=== PATIENT | male | born 1990 | race Caucasian/White ===

== ENCOUNTER 2020-07-09 16:07 | Outpatient (REF) | payer MEDICARE, MEDICAID, SELFPAY | END 2020-07-09 16:08 | disposition home or self-care (01) | LOC: HO.LAB 16:07 | PROVIDERS: Visit Provider Internal Medicine | DX: Z20.822 Contact with and (suspected) exposure to COVID-19 (principal) | CPT/HCPCS: 36415; C9803; U0003 ==

== ENCOUNTER 2025-03-28 19:59 | Emergency (ER) | payer OTHER, SELFPAY ==
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
[2025-03-28 20:08] VITALS: BP 122/68; PULSE 71; RESP 16; TEMP 36.1; O2SAT 100; BMI 28.4
[2025-03-28 20:29] VITALS: BP 120/69; PULSE 75; RESP 16; TEMP 36.4; O2SAT 100
--- OUTSIDE RECORDS SUMMARY | 2025-03-28 20:43 | XMS_ITS | Encounter Summary ---
Author Organization [facility] Address [address] [place] [address] Phone Care Team Providers Care Washing Machine Operator Name Role Phone Héctor Chandler MD Primary Care Provider [phone] Héctor Chandler MD Unavailable [phone] Héctor Chandler MD Unavailable [phone] Héctor Chandler MD Primary Care Provider [phone] Reason for Referral * MRI/CAT Scan - Closed Specialty Diagnoses / Procedures Referred By Contac t Referred To Contact Radiology Diagnoses Right shoulder pain, unspecified chronicity Procedures MRI Shoulder Arthrogram (Right) Allan Marcelo MD Phone: tel: fax: [email or web address] Referral ID Status Reason Start Date Expiration Date Visits Re quested Visits Authorized [id number] Closed 08/12/2018 08/12/2019 1 1 * - Closed Specialty Diagnoses / Procedures Referred By Contac t Referred To Contact Radiology Diagnoses Right shoulder pain, unspecified chronicity Procedures FL Shoulder Arthrogram (Right) Allan Marcelo MD Phone: tel: fax: mailto:[email or web address] Referral ID Status Reason Start Date Expiration Date Visits Re quested Visits Authorized [id number] Closed 08/14/2018 08/14/2019 1 1 Encounter Details Date Type Department Care Team (Latest Contact Info) Description 08/14/2018 Transcribe Orders Virtual Department [address] [place] [address] Allan Marcelo MD [address] [place] [address] [email or web address] Right shoulder pain, unspecified chronicity (Primary Dx) Social History Tobacco Use Types Packs/Day Years Used Date Smoking Tobacco: Never Smokeless Tobacco: Never Alcohol Use Standard Drinks/Week Comments No 0 (1 standard drink = 0.6 oz pur e alcohol) Sex and Gender Information Value Date Recorded Sex Assigned at Male 07/31/2018 7:42 AM EST Legal Sex Male 9:06 PM EDT Gender Identity Male 07/31/2018 7:42 AM EST Sexual Orientation Straight 07/31/2018 7: 42 AM EST documented as of this encounter Plan of Treatment Not on file documented as of this encounter Results * MRI Shoulder Arthrogram (Right) (09/12/2018 1:19 PM EDT) Anatomical Region Laterality Modality Shoulder Right Magnetic Resonan ce 09/12/2018 1:22 PM EDT Impressions 09/12/2018 1:27 PM EDT No discrete labral or rotator cuff tear demonstrated. POS [id number] Narrative 09/12/2018 1:27 PM EDT TECHNIQUE: Exam performed on a 1.5 Christy high-field MRI scanner. Dilute gadolinium solution was injected before the MRI - please see separate report. Axial T1, T1 with fat suppression and proton density with fat suppression, oblique coronal T1 with fat suppression and T2 with fat suppression, oblique sagittal T1 with fat suppression and proton density with fat suppression sequences were obtained. FINDINGS: Comparison is made with the prior MR of 02/18/2014. Focal supraspinatous tendinosis suggested previously is not duplicated currently. No discrete rotator cuff tear is demonstrated. No discrete labral tear apparent. Biceps tendon is unremarkable in appearance. Mid glenohumeral ligament appears to be intact. No significant abnormality of skeletal marrow signal is present. No soft tissue mass or axillary lymphadenopathy are demonstrated. Procedure Note Héctor Pelayo MD - 09/12/2018 TECHNIQUE: Exam performed on a 1.5 Christy high-field MRI scanner. Dilutegadolinium solution was injected before the MRI - please see separatereport. Axial T1, T1 with fat suppression and proton density with fatsuppression, oblique coronal T1 with fat suppression and T2 with fatsuppression, oblique sagittal T1 with fat suppression and proton densitywith fat suppression sequences were obtained. FINDINGS: Comparison is made with the prior MR of 02/18/2014. Focal supraspinatous tendinosis suggested previously is not duplicatedcurrently. No discrete rotator cuff tear is demonstrated. No discretelabral tear apparent. Biceps tendon is unremarkable in appearance. Midglenohumeral ligament appears to be intact. No significant abnormality ofskeletal marrow signal is present. No soft tissue mass or axillarylymphadenopathy are demonstrated. IMPRESSION: No discrete labral or rotator cuff tear demonstrated. POS [id number] us Allan Marcelo MD IMG MR EXTREMITY Final Resul t * FL Shoulder Arthrogram (Right) (09/12/2018 12:01 PM EDT) Anatomical Region Laterality Modality Shoulder Right Radiographic Chelsea ging 09/12/2018 12:1 5 PM EDT Impressions 09/12/2018 12:16 PM EDT Apparently successful intra-articular administration of contrast. MR arthrography is pending, to be reported separately. FLUOROSCOPY TIME: min. 47 sec; 1 IMAGES/FRAMES POS - [id number] Narrative 09/12/2018 12:16 PM EDT COMPARISON: None FINDINGS: A preliminary anterior view reveals no acute bony abnormality. Once informed consent was obtained and the appropriate side of intervention confirmed by the patient and radiologist the overlying skin and subcutaneous tissues were infiltrated with a lidocaine solution. Utilizing sterile technique a spinal needle was then percutaneously inserted via an anterior approach and once an intra-articular location of the needle tip was confirmed via injection of small amount of radiographic contrast, approximately 10 cc of a dilute gadolinium mixture was instilled. Following removal of the needle the patient was sent to the MR suite for further imaging. He tolerated the procedure well, without immediate complications encountered. Procedure Note Héctor Pelayo MD - 09/12/2018 COMPARISON: None FINDINGS: A preliminary anterior view reveals no acute bony abnormality. Onceinformed consent was obtained and the appropriate side of interventionconfirmed by the patient and radiologist the overlying skin andsubcutaneous tissues were infiltrated with a lidocaine solution.Utilizing sterile technique a spinal needle was then percutaneouslyinserted via an anterior approach and once an intra-articular location ofthe needle tip was confirmed via injection of small amount of radiographiccontrast, approximately 10 cc of a dilute gadolinium mixture wasinstilled. Following removal of the needle the patient was sent to the [facility] for further imaging. He tolerated the procedure well, withoutimmediate complications encountered. IMPRESSION: Apparently successful intra-articular administration of contrast. MRarthrography is pending, to be reported separately. FLUOROSCOPY TIME: min. 47 sec; 1 IMAGES/FRAMES POS - [id number] us Allan Marcelo MD [facility] Final Result documented in this encounter Visit Diagnoses Diagnosis Right shoulder pain, unspecified chronicity- Primary Right shoulder pain, unspecified chronicity Right shoulder pain, unspecified chronicity documented in this encounter Additional Health Concerns Infection Onset Date Last Indicated Resolved Time CoV-Risk 01/25/2021 01/25/2021 02/04/2021 1:26 AM EDT documented as of this encounter Care Teams Washing Machine Operator Relationship Specialty Start Date End Date Héctor Chandler MD [email or web address] PCP - General 04/12/17 07/08/24 Héctor Chandler MD [address] [place] [address] [email or web address] PCP - General Internal Medicine 07/09/24 Héctor Chandler MD [address] [place] [address] [email or web address] Insurance Assigned Provider 08/26/18 03/03/19 Héctor Chandler MD [address] [place] [address] [email or web address] Insurance Assigned Provider 07/05/20 08/02/20 documented as of this encounter Additional Source Comments The information contained in this document represents components of the legal health record. It is not the complete legal health record.[facility]
--- OUTSIDE RECORDS SUMMARY | 2025-03-28 20:43 | XMS_ITS | Encounter Summary ---
Author Organization [facility] Address [address] [place] [address] Phone Care Team Providers Care Power Transmission Engineer Name Role Phone Rj Chandler MD Primary Care Provider [phone] Rj Chandler MD Unavailable [phone] Rj Chandler MD Unavailable [phone] Rj Chandler MD Primary Care Provider [phone] Encounter Details Date Type Department Care Team (Late st Contact Info) Description 04/22/2017 Ancillary Orders Virtual Department [address] [place] [address] Rj Chandler MD [address] [place] [address] [email or web address] Right shoulder pain, unspecified chronicity Social History Tobacco Use Types Packs/Day Years Used Date Smoking Tobacco: Never Assessed Sex and Gender Information Value Date Recorded Sex Assigned at Male 07/31/2018 7:42 AM EST Legal Sex Male 9:06 PM EDT Gender Identity Male 07/31/2018 7:42 AM EST Sexual Orientation Straight 07/31/2018 7: 42 AM EST documented as of this encounter Plan of Treatment Not on file documented as of this encounter Visit Diagnoses Diagnosis Right shoulder pain, unspecified chronicity documented in this encounter Additional Health Concerns Infection Onset Date Last Indicated Resolved Time CoV-Risk 01/25/2021 01/25/2021 02/04/2021 1:26 AM EDT documented as of this encounter Care Teams Power Transmission Engineer Relationship Specialty Start Date End Date Rj Chandler MD [email or web address] PCP - General 04/12/17 07/08/24 Rj Chandler MD [address] [place] [address] [email or web address] PCP - General Internal Medicine 07/09/24 Rj Chandler MD [address] [place] [address] [email or web address] Insurance Assigned Provider 08/26/18 03/03/19 Rj Chandler MD [address] [place] [address] [email or web address] Insurance Assigned Provider 07/05/20 08/02/20 documented as of this encounter Additional Source Comments The information contained in this document represents components of the legal health record. It is not the complete legal health record.[facility]
--- OUTSIDE RECORDS SUMMARY | 2025-03-28 20:43 | XMS_ITS | Encounter Summary ---
Author Organization [facility] Address [address] [place] [address] Phone Care Team Providers Care Manager School Name Role Phone Rj Chandler MD Primary Care Provider [phone] Rj Chandler MD Unavailable [phone] Rj Chandler MD Unavailable [phone] Rj Chandler MD Primary Care Provider [phone] Encounter Details Date Type Department Care Team (Late st Contact Info) Description 08/14/2018 Procedure Pass [facility], [address] [address] Social History Tobacco Use Types Packs/Day Years [...] documented as of this encounter Visit Diagnoses Not on filedocumented in this encounter Additional Health Concerns Infection Onset Date Last Indicated Resolved Time CoV-Risk 01/25/2021 01/25/2021 02/04/2021 1:26 AM EDT documented as of this encounter Care Teams Manager School Relationship Specialty Start Date End Date Rj Chandler MD [email or web address] PCP - General 04/12/17 07/08/24 Rj Chandler MD [address] [place] [address] [email or web address] PCP - General Internal Medicine 07/09/24 Rj Chandler MD [address] [place] [address] [email or web address] Insurance Assigned Provider 08/26/18 03/03/19 Rj Chandler MD [address] [place] [address] [email or web address] Insurance Assigned Provider 07/05/20 08/02/20 documented as of this encounter Additional Source Comments The information contained in this document represents components of the legal health record. It is not the complete legal health record.[facility]
--- OUTSIDE RECORDS SUMMARY | 2025-03-28 20:43 | XMS_ITS | Clinical Summary ---
Author Organization [facility] Address [address] [place] [address] Care Team Providers Care Tool Rental Technician Name Role Phone Nadeem Becerra Primary Care Provider Allergies No known active allergies Medications Amphetamine-Dext roamphetamine (ADDERALL, 10MG,) 10 MG Tab 1 TABLET DAILY Active Fluoxetine HCl 20 MG Cap 1 CAPSULE EVERY MORNING Active TraZODone HCl 50 MG Tab 1 TABLET DAILY Active Amoxicillin-Pot Clavulanate (AUGMENTIN) 875-125 MG Tab 1 by mouth twice daily for 7 days 14 Tab 10/04/2017 Active Active Problems No known active problems Immunizations Immunization Administration Dates Next Due Tdap 10/04/2017 Social History Tobacco Use Types Packs/Day Years Used Date Smoking Tobacco: Never Smokeless Tobacco: Never Sex and Gender Information Value Date Recorded Sex Assigned at Not on file Legal Sex Male 3:04 PM EDT Gender Identity Not on file Sexual Orientation Not on file Last Filed Vital Signs Vital Sign Reading Time Taken Comments Blood Pressure 107/74 10/04/2017 3:24 PM EDT Pulse 66 10/04/2017 3:24 PM EDT Temperature 36.8 C (98.3 F) 10/04/2017 3:24 PM EDT Respiratory Rate 16 10/04/2017 3:24 PM EDT Oxygen Saturation - - Inhaled Oxygen Concentration - - Weight - - Height - - Body Mass Index - - Plan of Treatment Health Maintenance Due Date Last Done Comments Hepatitis C Screening 1989 Hep B (1 of 3 - 19+ 3-dose series) 02/15/2008 COVID-19 Vaccine ( - 2023-2 5 season) 2025 Influenza (#1) 2025 DTaP/Tdap/Td (2 - Td or Tdap) 10/05/2027 10/04/2017 Zoster (Shingrix) (1 of 2) 2039 HPV Vaccine (No Doses Required) Completed Hep A Aged Out No longer eligi ble based on patient's age to complete this topic Hib Aged Out No longer eligi ble based on patient's age to complete this topic Meningococcal ACWY Aged Out No longer eligible based on patient's age to complete this topic Pneumococcal Aged Out No longer eligi ble based on patient's age to complete this topic Insurance * Guarantor: [employer] Account Type Relation to Patient Date of Phone Billing Address Personal/Family [address] [place] [address] MEDICAID Care Teams Tool Rental Technician Relationship Specialty Start Date End Date Nadeem Becerra [address] [address] PCP - General Family Medicine 10/04/17
--- OUTSIDE RECORDS SUMMARY | 2025-03-28 20:43 | XMS_ITS | Encounter Summary ---
Author Organization [facility] Address [address] [place] [address] Phone Care Team Providers Care Grease Refining Supervisor Name Role Phone Rj Chandler MD Primary Care Provider [phone] Rj Chandler MD Unavailable [phone] Rj Chandler MD Unavailable [phone] Rj Chandler MD Primary Care Provider [phone] Encounter Details Date Type Department Care Team (Late st Contact Info) Description 04/21/2017 Transcribe Orders Virtual Department [address] [place] [address] Rj Chandler MD [address] [place] [address] [phone] [email or web address] Right shoulder pain, unspecified chronicity (Primary Dx) [...] Diagnosis Right shoulder pain, unspecified chronicity- Primary documented in this encounter Additional Health Concerns Infection Onset Date Last Indicated Resolved Time CoV-Risk 01/25/2021 01/25/2021 02/04/2021 1:26 AM EDT documented as of this encounter Care Teams Grease Refining Supervisor Relationship Specialty Start Date End Date Rj Chandler MD [email or web address] PCP - General 04/12/17 07/08/24 Rj Chandler MD [address] [place] [address] [email or web address] PCP - General Internal Medicine 07/09/24 Rj Chandler MD [address] [place] [address] [email or web address] Insurance Assigned Provider 08/26/18 03/03/19 Rj Chandler MD [address] [place] [address] [email or web address] Insurance Assigned Provider 07/05/20 08/02/20 documented as of this encounter Additional Source Comments The information contained in this document represents components of the legal health record. It is not the complete legal health record.[facility]
--- OUTSIDE RECORDS SUMMARY | 2025-03-28 20:43 | XMS_ITS | Encounter Summary ---
Author Organization [facility] Address [address] [place] [address] Phone Care Team Providers Care Data Entry Email Processor Name Role Phone Rj Chandler MD Primary Care Provider [phone] Rj Chandler MD Primary Care Provider [phone] Reason for Referral * MRI/CAT Scan - Closed Specialty Diagnoses / Procedures Referred By Contac t Referred To Contact Radiology Diagnoses Radiculopathy, cervical region Procedures MRI Cervical Spine CHG MRI, CERV SPINE Steven Moy MD Phone: tel: fax: mailto:[email or web address] Referral ID Status Reason Start Date Expiration Date Visits Re quested Visits Authorized [id number] Closed 04/09/2022 07/11/2022 1 1 Encounter Details Date Type Department Care Team (Latest Contact Info) Description 04/26/2022 Transcribe Orders Virtual Department [address] [place] [address] Steven Moy MD [address] [place] [address] [email or web address] Radiculopathy, cervical region (Primary Dx) Social History Tobacco Use Types [...] as of this encounter Plan of Treatment Scheduled Orders Name Type Priority Associated Diagnoses Orde r Schedule MRI Cervical Spine Imaging Routine Radiculopathy, cervical region Expected: 04/26/2022, Expires: 04/26/2023 documented as of this encounter Visit Diagnoses Diagnosis Radiculopathy, cervical region- Primary Brachial neuritis or radiculitis nos documented in this encounter Care Teams Data Entry Email Processor Relationship Specialty Start Date End Date Rj Chandler MD [email or web address] PCP - General 04/12/17 07/08/24 Rj Chandler MD [address] [place] [phone] [email or web address] PCP - General Internal Medicine 07/09/24 documented as of this encounter Additional Source Comments The information contained in this document represents components of the legal health record. It is not the complete legal health record.[facility]
--- OUTSIDE RECORDS SUMMARY | 2025-03-28 20:43 | XMS_ITS | Encounter Summary ---
Author Organization [facility] Address [address] [place] [address] Phone Care Team Providers Care Boring Machine Operator Vertical Name Role Phone Rj Chandler MD Primary Care Provider [phone] Rj Chandler MD Unavailable [phone] Rj Chandler MD Unavailable [phone] Rj Chandler MD Primary Care Provider [phone] Encounter Details Date Type Department Care Team (Late st Contact Info) Description 04/21/2017 Ancillary Orders Virtual Department [address] [place] [address] Rj Chandler MD [address] [place] [address] [email or web address] Social History Tobacco Use Types Packs/Day Years [...] documented as of this encounter Care Teams Boring Machine Operator Vertical Relationship Specialty Start Date End Date Rj Chandler MD [email or web address] PCP - General 04/12/17 07/08/24 Rj Chandler MD [address] [place] [phone] [email or web address] PCP - General Internal Medicine 07/09/24 Rj Chandler MD [address] [place] [address] [email or web address] Insurance Assigned Provider 08/26/18 03/03/19 Rj Chandler MD [address] [place] [address] [email or web address] Insurance Assigned Provider 07/05/20 08/02/20 documented as of this encounter Additional Source Comments The information contained in this document represents components of the legal health record. It is not the complete legal health record.[facility]
--- OUTSIDE RECORDS SUMMARY | 2025-03-28 20:43 | XMS_ITS | Encounter Summary ---
Author Organization [facility] Address [address] [place] [id number] Phone Care Team Providers Care Tugboat Captain Name Role Phone Rj Chandler MD Primary Care Provider [phone] Rj Chandler MD Unavailable [phone] Rj Chandler MD Unavailable [phone] Rj Chandler MD Primary Care Provider [phone] Encounter Details Date Type Department Care Team (Late st Contact Info) Description 04/22/2017 Ancillary Orders Virtual Department [address] [place] [id number] Rj Chandler MD [address] [place] [phone] [email or web address] Social History Tobacco Use Types Packs/Day Years [...] documented as of this encounter Care Teams Tugboat Captain Relationship Specialty Start Date End Date Rj Chandler MD [email or web address] PCP - General 04/12/17 07/08/24 Rj Chandler MD [address] [place] [phone] [email or web address] PCP - General Internal Medicine 07/09/24 Rj Chandler MD [address] [place] [phone] [email or web address] Insurance Assigned Provider 08/26/18 03/03/19 Rj Chandler MD [address] [place] [phone] [email or web address] Insurance Assigned Provider 07/05/20 08/02/20 documented as of this encounter Additional Source Comments The information contained in this document represents components of the legal health record. It is not the complete legal health record.[facility]
--- OUTSIDE RECORDS SUMMARY | 2025-03-28 20:43 | XMS_ITS | Clinical Summary ---
Author Organization [facility] Address [address] [place] [address] Phone Care Team Providers Care Hand Picker Name Role Phone Rj Chandler MD Primary Care Provider [phone] Allergies No known active allergies Medications clonazePAM (KLONOPIN) 1 MG tablet Take 1 mg by mouth 3 (three) times a day. 1 Active cetirizine (ZYRTEC) 10 MG tablet Take 10 mg by mouth daily. 1 Active dextroamphetami ne-amphetamine (ADDERALL) 20 mg Tab tablet every morning. 1 Active cyclobenzaprine (FLEXERIL) 10 MG tablet Take 1 tablet (10 mg total) by mouth 3 (three) times a day as needed (muscle). 15 tablet 1 Active Additional Information Patient not taking.Reported on 01/19/2025 nabumetone (RELAFEN) 500 MG tablet Take 1 tablet (500 mg total) by mouth 2 (two) times a day for 10 days. Take with food. 20 tablet 1 Active loratadine (CLARITIN) 10 mg tablet Take 1 tablet by mouth every morning. 3 Active oxyCODONE 5 MG immediate release tablet TAKE 1 TABLET BY MOUTH EVERY 6 HOURS NEEDED FOR 2 DAYS 3 Active oxyCODONE-aceta minophen (PERCOCET) 5-325 mg per tablet TAKE 1 TABLET BY MOUTH EVERY 6 HOURS NEEDED FOR 3 DAYS 3 Active Active Problems No known active problems Encounters Date Type Department Care Team Description 01/29/2025 1:50 PM EDT Office Visit [facility] [address] [place] [address] Lynn Davies, Nga Wolff, DEANGELO Sore throat (Primary Dx); Strep throat 01/19/2025 10:40 AM EDT Office Visit [facility] at [address] [place] [address] Lynn Davies, LUIS Strep throat (Primary Dx) from Last 3 Months Immunizations Immunization Administration Dates Next Due DTP 08/30/1990, 0,1989,1988 DTaP, unspecified formulation 03/02/1994 HPV,quadrivalent 12/01/2012 Hepatitis B, unspecified formulation 09/10/1999, 08/01/1996,07/04/1996 Hib, unspecified formulation 06/12/1990 Influenza Quadrivalent Prese rvative Free IM 07/05/2019 Influenza trivalent preserva tive free intradermal 05/05/2012 MMR 09/10/1999,06/12/1990 Polio - OPV 03/02/1994, 1,1989,1988,1989 Td (adult), not adsorbed 10/06/2017 Td, unspecified formulation 08/12/2000 Tdap 10/04/2017,12/01/2012 Varicella 06/27/1993 Social History Tobacco Use Types Packs/Day Years [...] Orientation Straight 07/31/2018 7: 42 AM EST Last Filed Vital Signs Vital Sign Reading Time Taken Comments Blood Pressure 110/72 01/29/2025 2:23 PM EDT Pulse 78 01/29/2025 2:23 PM EDT Temperature 36.7 C (98 F) 01/29/2025 2:23 PM EDT Respiratory Rate 16 01/29/2025 2:23 PM EDT Oxygen Saturation 98% 01/29/2025 2:23 PM EDT Inhaled Oxygen Concentration - - Weight 93.2 kg (205 lb 6.4 oz) 07/09/2024 9:55 A M EST Height 185.4 cm (6' 1 ) 07/09/2024 9:55 AM EST Body Mass Index 27.1 07/09/2024 9:55 AM EST Plan of Treatment Health Maintenance Due Date Last Done Comments LIPID PANEL 1989 DEPRESSION SCREENING 2001 HEPATITIS C SCREENING 2007 HIV ONE-TIME SCREENING (18-65 YEARS) 2007 INFLUENZA VACCINE (#1) 2025 07/05/2019, 2011 COVID-19 VACCINE ( season) 2025 02/06/2021 SCREENING FOR DIABETES 07/09/2027 07/09/2024 Adult Td,Tdap Booster 10/07/2027 10/06/2017 , 10/04/2017, 12/01/2012, Additional history exists HIB VACCINES Completed 06/12/1990 SMOKING STATUS SCREENING (Once After 26 Yrs) Completed 01/29/2025 HEPATITIS A VACCINES Aged Out No long er eligible based on patient's age to complete this topic MENINGOCOCCAL VACCINES (ACWY) Aged Out No longer eligible based on patient's age to complete this topic MENINGOCOCCAL VACCINES (B) Aged Out N o longer eligible based on patient's age to complete this topic PNEUMOCOCCAL VACCINES (0-49 years) Aged Out No longer eligible based on patient's age to complete this topic Medical Devices Not on file Procedures Procedure Name Priority Date/Time Associated Diagnosis Comments POCT RAPID STREP A Routine 01/29/2025 1: 52 PM EDT POCT RAPID STREP A Routine 01/19/2025 10 :45 AM EDT from Last 3 Months Results * (ABNORMAL) POCT Rapid Strep A (01/29/2025 1:52 PM EDT) Only the most recent of2 resultswithin the time period is included. [facility] Signature Strep A, PCR Detected(A ) Not Detected [facility] [place] 01/29/2025 1:52 PM EDT 01/29/2025 2:17 PM EDT Lynn Davies NP POINT OF CARE TEST ORDERAB LES Final Result [facility] [address] [id number], [facility] [phone] from Last 3 Months Insurance MEDICARE PART A & B [facility]LY [facility] CARE MEDICARE REPLACEMENT MEDICARE PART A & B [facility] CARE MEDICARE REPLACEMENT MEDICARE PART A & B MEDICARE PART A & B MEDICARE PART A & B ONE CARE MEDICARE REPLACEMENT [place] [id number] MEDICARE PART A & B MEDICARE PART A & B ONE CARE MEDICARE REPLACEMENT [place] [id number] MEDICARE PART A & B CARE MEDICARE REPLACEMENT MEDICARE PART A & B CARE MEDICARE REPLACEMENT [employer] MEDICARE PART A & B [employer] Care Teams Hand Picker Relationship Specialty Start Date End Date Rj Chandler MD [address] [place] [phone] [email or web address] PCP - General Internal Medicine 07/09/24 Additional Source Comments The information contained in this document represents components of the legal health record. It is not the complete legal health record.[facility]
--- OUTSIDE RECORDS SUMMARY | 2025-03-28 20:43 | XMS_ITS | Encounter Summary ---
Author Organization [facility] Address [address] [place] [phone] Phone Care Team Providers Care Child Care Leader Name Role Phone Rj Chandler MD Primary Care Provider [phone] Rj Chandler MD Primary Care Provider [phone] Encounter Details Date Type Department Care Team (Late st Contact Info) Description 11/11/2020 Procedure Pass [facility], Ct Scan - [address] [address] Social History Tobacco Use Types Packs/Day Years [...] Date of Assessment Author No Risk Indicated 11/11/2020 8:26 AM Eloina Yancey RN * [place] Suicide Severity Rating Scale (Screener/Recent Self-Report) Question Answer Date of Assessment Author 1. Wish to be (Past 1 Month) No 021 8:26 AM Eloina Yancey RN 2. Non-Specific Active Suici abril Thoughts (Past 1 Month) No 11/11/2020 8:26 AM Eloina Yancey RN 6. Suicidal Behavior (Lifetime) No 8:26 AM EDT Eloina Palomino RN documented as of this encounter Plan of Treatment Not on file documented as of this encounter Visit Diagnoses Not on filedocumented in this encounter Additional Health Concerns Infection Onset Date Last Indicated Resolved Time CoV-Risk 01/25/2021 01/25/2021 02/04/2021 1:26 AM EDT documented as of this encounter Care Teams Child Care Leader Relationship Specialty Start Date End Date Rj Chandler MD [email or web address] PCP - General 04/12/17 07/08/24 Rj Chandler MD [address] [place] [phone] [email or web address] PCP - General Internal Medicine 07/09/24 documented as of this encounter Additional Source Comments The information contained in this document represents components of the legal health record. It is not the complete legal health record.[facility]
--- OUTSIDE RECORDS SUMMARY | 2025-03-28 20:43 | XMS_ITS | Encounter Summary ---
Author Organization [facility] Address [address] [place] [address] Phone Care Team Providers Care Undercover Operator Name Role Phone Rj Chandler MD Primary Care Provider [phone] Rj Chandler MD Primary Care Provider [phone] Encounter Details Date Type Department Care Team (Late st Contact Info) Description 12/17/2021 Procedure Pass [facility], Ct Scan - [address] [address] Social History Tobacco Use Types Packs/Day Years [...] Date of Assessment Author No Risk Indicated 12/17/2021 6:14 PM EDT Tonia Garcias RN * [place] Suicide Severity Rating Scale (Screener/Recent Self-Report) Question Answer Date of Assessment Author 1. Wish to be (Past 1 Month) No 022 6:14 PM EDT Tonia Garcias RN 2. Non-Specific Active Suici abril Thoughts (Past 1 Month) No 12/17/2021 6:14 PM EDT Anastasia Garcias RN 6. Suicidal Behavior (Lifetime) No 2 6:14 PM EDT Tonia Garcias RN documented as of this encounter Plan of Treatment Not on file documented as of this encounter Visit Diagnoses Not on filedocumented in this encounter Care Teams Undercover Operator Relationship Specialty Start Date End Date Rj Chandler MD [email or web address] PCP - General 04/12/17 07/08/24 Rj Chandler MD [address] [place] [phone] [email or web address] PCP - General Internal Medicine 07/09/24 documented as of this encounter Additional Source Comments The information contained in this document represents components of the legal health record. It is not the complete legal health record.[facility]
[2025-03-28 20:53] LABS: Alanine Aminotransferase 16 U/L (0-40); Albumin Level 4.9 g/dL (3.5-5.0); Alkaline Phosphatase 69 U/L (39-117); Anion Gap 12 (12-20); Aspartate Amino Transferase 24 U/L (5-37); Blood Urea Nitrogen 11 mg/dL (9-16); Calcium 9.6 mg/dL (8.4-10.2); Carbon Dioxide 28 mmol/L (22-29); Chloride 106 mmol/L (96-108); Creatinine Clr Calc Pharmacy 169.7; Estimated Glomerular Filt Rate > 60; Potassium 4.2 mmol/L (3.3-5.1); Sodium 142 mmol/L (135-145); Total Protein 7.9 g/dL (6.5-8.0)
[2025-03-28 20:56] LABS: Hematocrit 42.0 % (42.0-52.0); Hemoglobin 14.6 g/dl (14.0-18.0); Imm Gran Abs Auto 0.04 X10*3/uL (0.00-0.03); Imm Gran Pct Auto 0.5 % (0.0-0.4); Lymphocytes Absolute Auto 0.5 X10*3/uL (1.2-4.9); MANUAL DIFF FLAG SCAN; Mean Corpuscular HGB Conc 34.8 g/dl (31.0-36.0); Mean Corpuscular Hemoglobin 29.8 pg (27.0-33.0); Mean Corpuscular Volume 85.7 fL (80.0-98.0); NRBC Abs Auto 0.000 X10*3/uL (0.0-0.012); NRBC Pct Auto 0.0 /100WBC (0.0-0.2); Platelet Count 263 X10*3/uL (160-400); Red Blood Count 4.90 X10*6/uL (4.60-5.80); SCAN SMEAR FLAG 1; White Blood Count 8.8 X10*3/uL (4.8-10.8)
[2025-03-28 21:16] LABS: COVID-19 Test Negative (Negative); IDNOW Serial# 6674DD1D
--- NOTE | 2025-03-28 22:20 | ED.HA ---
HPI - Headache General Chief Complaint: Headache Stated Complaint: migraine N+V Time Seen by Provider: 03/28/25 21:05 Source: patient Mode of arrival: ambulatory Limitations: no limitations History of Present Illness ED Provider: Dr. Kristal Burgos HPI Narrative: Patient comes to the emergency room complaining of a throbbing headache. Patient states that he has had multiple migraine episodes in the past, has had imaging in the past as well. Patient states that he has light sensitivity, nausea and vomiting. No diarrhea, no abdominal pain. Patient states that he does not have any medication that is specifically for migraine treatment. Patient denies double vision, denies any extremity weakness numbness or tingling. Related Data Previous Rx's ?Medication ?Instructions ?Recorded sumatriptan succinate 50 mg tablet See Rx Instructions PO .COMPLEX 03/29/25 #14 tabs Allergies Allergy/AdvReac Type Severity Reaction Status Date / Time No Known Allergies (No Known Allergy Verified 03/28/25 20:09 Allergies*) Review of Systems Review of Systems: Constitutional : No Weight loss, No Fever, No Chills, No Night Sweats, No Fatigue, No Malaise ENT/Mouth : No Hearing loss, No Ear Pain, No Nasal Congestion, No Sinus Pain, No Hoarseness, No sore throat, No Rhinorrhea, No Swallowing Difficulty Eyes: Complaining of photophobia No Eye Pain, No Swelling, No Redness, No Foreign Body, No Discharge, No Vision Changes Cardiovascular : No Chest Pain, No SOB, No Dyspnea on Exertion, No Orthopnea, No Edema, No Palpitations Respiratory : No Cough, No Sputum, No Wheezing, No Smoke Exposure, No Dyspnea Gastrointestinal : No Nausea, No Vomiting, No Diarrhea, No Constipation, No abdominal Pain, No Hematochezia, No Melena Genitourinary : no irregular bleeding, No Dysuria, No Urinary Frequency, No Hematuria, No Urinary Incontinence, No Urgency, No Flank Pain, No Urinary Flow Changes, No Hesitancy Musculoskeletal : No joint pain, No Myalgias, No Joint Swelling Skin : No Skin Lesions, No rash Neuro : No Weakness, No Numbness, No Paresthesias, No Loss of Consciousness, No Dizziness, complaining of left throbbing migraine headache Psych : No Anxiety/Panic, No Depression, No SI/HI/AH/VH, No Social Issues, Heme/Lymph: No Bruising, No Bleeding,No Lymphadenopathy Endocrine : No Polyuria, No Polydipsia, No Temperature Intolerance [facility] Past Medical History Medical History (Updated 03/29/25 @ 00:07 by Kristal Burgos MD) Migraine Social History Social History Smoked in Last 30 Days: No Advance Directives: No Advance Directives Information Provided: No Physical Exam Exam: Exam: Appearance: Alert. Oriented X3. No acute distress. Eyes: Pupils equal, round and reactive to light. Patient has photophobia ENT: Pharynx normal. Neck: Normal inspection. Neck supple. No lymph nodes noted. No crepitus patient is able to flex and extend the neck without any pain or rigidity CVS: Normal heart rate and rhythm. Pulses normal. Normal S1 and S2 Respiratory: No respiratory distress. Breath sounds normal. No Wheezing. No rales Abdomen: Soft and nontender. No rigidity. No distention. Skin: Skin warm and dry. Normal skin color. Normal skin turgor. Extremities: No lower extremity edema. No Lacerations. No Rash Neuro: Oriented X 3. No motor deficit. No sensory deficit. Moving all extremities. No slurred speech. CN 2 through 12 grossly intact Psych: calm, cooperative, normal affect Vital Signs: Vital Signs: Last Vital Signs Temp 97.6 F 03/28/25 22:52 Pulse 68 03/28/25 22:52 Resp 15 03/28/25 22:52 BP 111/69 03/28/25 22:52 Pulse Ox 99 03/28/25 22:52 O2 Del Method Room Air 03/28/25 22:52 BMI result Body Mass Index 28.4 Course Course Course Narrative: Patient received a dose of fluids, Reglan, ketorolac, Benadryl Medications Administered Discontinued Medications Generic Name Dose Route Start Last Admin Trade Name Freq PRN Reason Stop Dose Admin Diphenhydramine HCl 25 mg 03/28/25 21:22 03/28/25 21:29 Diphenhydramine Hcl 50 Mg/Ml Vial IVPUSH 03/28/25 21:23 25 mg ONCE ONE Administration Sodium Chloride 1,000 mls @ 999 mls/hr 03/28/25 21:22 03/28/25 22:37 Ns IVCONT 03/28/25 22:22 Infused .Q1H1M ONE Infusion Ketorolac Tromethamine 30 mg 03/28/25 21:22 03/28/25 21:29 Ketorolac Tromethamine 30 Mg/Ml Vial IVPUSH 03/28/25 21:23 30 mg ONCE ONE Administration Metoclopramide HCl 10 mg 03/28/25 21:22 03/28/25 21:29 Metoclopramide Hcl 10 Mg/2 Ml Vial IVPUSH 03/28/25 21:23 10 mg ONCE ONE Administration Medical Decision Making Medical Decision Making [facility] Narrative: My interpretation of labs: No significant abnormality in patient's hematology or chemistry, normal LFTs, serology negative for COVID After the above-mentioned medication, patient states that he feels better. Headache is now 2/10. Patient was given an additional dose of Fioricet. Patient is well-appearing, playing on his phone, no neurological deficits, able to stand, normal steady gait, no neck pain or stiffness Differential Diagnosis Differential Diagnoses: The differential diagnosis associated with the presentation includes (Tension headache, migraine headache, cluster headache) Admission/Observation Consideration of admission/observation: Escalation of care including admission/observation considered Lab Data [facility] Lab Attestation statement: I reviewed the patient's lab results. 03/28/25 20:35 03/28/25 20:35 Labs: Lab Results 03/28/25 03/28/25 Range/Units 20:35 20:55 WBC 8.8 (4.8-10.8) X10*3/uL RBC 4.90 (4.60-5.80) X10*6/uL Hgb 14.6 (14.0-18.0) g/dl Hct 42.0 (42.0-52.0) % MCV 85.7 (80.0-98.0) fL MCH 29.8 (27.0-33.0) pg MCHC 34.8 (31.0-36.0) g/dl RDW 11.9 (11.0-16.0) % Plt Count 263 (160-400) X10*3/uL MPV 9.0 L (9.4-12.4) fL Immature Gran % (Auto) 0.5 H (0.0-0.4) % Neut % (Auto) 90.7 H (45-73) % Lymph % (Auto) 5.7 L (20-40) % [place] % (Auto) 2.4 (2-11) % Eos % (Auto) 0.2 (0-4) % Baso % (Auto) 0.5 (0-2) % Lymph # (Auto) 0.5 L (1.2-4.9) X10*3/uL [place] # (Auto) 0.2 (0.1-1.2) X10*3/uL Eos # (Auto) 0.0 (0.0-0.4) X10*3/uL Baso # (Auto) 0.0 (0.0-0.2) X10*3/uL Abs Immat Gran (auto) 0.04 H (0.00-0.03) X10*3/uL Absolute Neuts (auto) 8.0 (2.0-8.3) x10*3/uL Absolute Nucleated RBC 0.000 (0.0-0.012) X10*3/uL Nucleated RBC % (auto) 0.0 (0.0-0.2) /100WBC Smear Tech's Comments VERIFIED Sodium 142 (135-145) mmol/L Potassium 4.2 (3.3-5.1) mmol/L Chloride 106 (96-108) mmol/L Carbon Dioxide 28 (22-29) mmol/L Anion Gap 12 (12-20) BUN 11 (9-16) mg/dL Creatinine 0.74 (0.5-1.4) mg/dL Estim Creat Clear Calc 169.7 Estimated GFR > 60 Random Glucose 129 H (60-115) mg/dL Calcium 9.6 (8.4-10.2) mg/dL Total Bilirubin 1.0 (0.0-1.0) mg/dL AST 24 (5-37) U/L ALT 16 (0-40) U/L Alkaline Phosphatase 69 (39-117) U/L Total Protein 7.9 (6.5-8.0) g/dL Albumin 4.9 (3.5-5.0) g/dL COVID-19 (LUCIA) Negative (Negative) COVID-19 Clin Com See Note Critical Care Time Critical Care Time Critical Care Time: Yes Total Critical Care Time: 35 Attestation: I have personally provided critical care time. Time includes review of lab data, radiology results, discussion with consultants, and monitoring for potential decompensation. Intervention performed as documented. Discharge Plan Discharge Clinical Impression: Migraine Patient Disposition: Home, Self-Care Instructions: Migraine Headache (ED) Additional Instructions: Please follow-up with your primary care physician tomorrow. If you have any worsening or new symptoms, please return to the emergency room or call 911 Prescriptions: New sumatriptan succinate 50 mg tablet See Rx Instructions .ROUTE .COMPLEX Qty: 14 0RF Rx Instructions: take 1 tab at onset of headache; if no relief may repeat 1 tab after at least 2 hrs; max = 4 tabs/24 hr Print Language: Ukrainian
[2025-03-28 22:52] VITALS: BP 111/69; PULSE 68; RESP 15; TEMP 36.4; O2SAT 99
[2025-03-29] VITALS: BP 106/59; PULSE 65; RESP 16; TEMP 36.4; O2SAT 99
[2025-03-29] MEDS: Butalb/Acetamin/Caff 50/325/40 TABLET 1 TAB PO (00:08)
[2025-03-29 00:32] VITALS: BP 106/59; PULSE 65; RESP 16; TEMP 36.4; O2SAT 99
== END 2025-03-29 00:32 | disposition home or self-care (01) ==
PROVIDERS: Emergency Provider Emergency Medicine; PCP Internal Medicine
DX: G43.909 Migraine, unspecified, not intractable, without status migrainosus (principal); Z79.899 Other long term (current) drug therapy
CPT/HCPCS: 80053; 85025; 87635; 96361; 96374; 96375; 99284; 99285; J1200; J1885; J2765